=== PATIENT | female | born 1930 | race Caucasian/White ===

== ENCOUNTER → 2016-08-25 | Emergency (ER) | payer MEDICARE ==
[~2016-08-25] VITALS: Ht 154.9 cm; Wt 62.0 kg
[2016-08-25 10:09] VITALS: BP 146/71
[2016-08-25 10:54] LABS: BASOPHILS % (AUTO) 0 % (0-2); EOSINOPHILS # (AUTO) 0.1 10^3uL; EOSINOPHILS % (AUTO) 1 % (0-4); LYMPHOCYTES # (AUTO) 1.3 X10^3; MEAN CORPUSCULAR HEMOGLOBIN 30.5 PG (26.0-34.0); MEAN CORPUSCULAR HGB CONC 34.3 g/dL (31.0-37.0); MEAN CORPUSCULAR VOLUME 89 FL (80-100); MEAN PLATELET VOLUME 8.3 FL (6.0-9.5); MONOCYTES # (AUTO) 1.2 X10^3; MONOCYTES % (AUTO) 11 % (3-11); NEUTROPHILS # (AUTO) 7.9 X10^3; NEUTROPHILS % (AUTO) 75 % (51-67); PLATELET COUNT 333 10^3uL (150-450); WHITE BLOOD COUNT 10.52 10^3uL (4.0-11.0)
[2016-08-25 11:12] LABS: ALBUMIN 4.5 g/dL (3.4-5.0); CALCULATED IONIZED CALCIUM 3.8 mg/dL (3.8-4.6)
== END | disposition home or self-care (01) ==
LOC: EDUNIT# 10:01 → ED 10:04
DX: M10.072 Idiopathic gout, left ankle and foot (principal)
CPT/HCPCS: 36415; 80053; 84550; 85025; 99282; 99283